=== PATIENT | female | born 1955 ===

== ENCOUNTER 2023-09-17 11:15 | Inpatient (IN) | payer OTHER ==
[~2023-09-17] VITALS: Ht 162.6 cm; Wt 86.2 kg
[2023-09-17 13:01] LABS: HEMATOCRIT 41.5 % (36.0-45.00); MEAN CELL VOLUME 84.2 fL (80.00-100.00); MEAN CORPUSCULAR HEMOGLOBIN 28.5 pg (27.00-32.0); MEAN CORPUSCULAR HGB CONC 33.8 g/dl (32.0-36.0); PLATELET COUNT 312 K/uL (150-450); RED BLOOD COUNT 4.93 M/uL (4.00-6.00); RED CELL DISTRIBUTION WIDTH 14.4 % (11.5-14.5)
[2023-09-17 13:10] LABS: URINE APPEARANCE Clear; URINE BILIRRUBIN Negative (NEGATIVE); URINE BLOOD Negative; URINE COLOR Yellow; URINE GLUCOSE Negative (NEGATIVE); URINE LEUKOCYTE Small; URINE NITRATE Negative; URINE PROTEIN Negative (NEGATIVE); URINE UROBILINOGEN 0.2 E.U./dl
[2023-09-17 13:15] LABS: URINE BACTERIA 149.8 uL (0.0-1933); URINE EPITHELIAL CELLS 8.3 uL (0.0-38.8); URINE RBC 5.3 uL (0.0-20.8); URINE WBC 23.3 uL (0.0-23.2)
[2023-09-17 13:27] LABS: INR 1.02; PARTIAL THROMBOPLASTIN TIME 37.5 SECONDS (22.0-34.0); PROTHROMBIN TIME 10.7 SECONDS (9.0-11.5)
[2023-09-17 13:33] LABS: BILIRUBIN TOTAL 0.76 mg/dL (0.3-1.2); CALCIUM 9.7 mg/dL (8.5-10.1); CREATININE SERUM 0.85 mg/dL (0.55-1.02); GFR 66.71; GLOBULINA 3.9 G/DL (2.4-3.5); POTASSIUM 4.03 mEq/L (3.5-5.1); TOTAL PROTEIN 7.9 gm/dL (6.4-8.2)
[2023-09-17] MEDS ORDERED: LIPITOR20 MG (13:57)
[2023-09-17] MEDS ORDERED: COZAAR25 MG (13:58)
[2023-09-27] MEDS ORDERED: POVIDONE-IODINE 118 ML BOTT TOP ONE ×2 (10:00→11:30)
[2023-09-27] MEDS ORDERED: CEFOXITIN SODIUM 2,000 MG VIAL IV ONE ×2 (10:31→11:30)
[2023-09-27] MEDS ORDERED: THROMBIN,HU/FIBRINOGEN/CALCIUM 10 ML SYRINGE TOP ONE (11:30)
[2023-09-27] MEDS ORDERED: THROMBIN,HU/FIBRINOGEN/CALCIUM 4 ML SYRINGE TOP ONE (11:36)
[2023-09-27] MEDS ORDERED: VISTASEAL DUAL APPICATOR 1 EACH APPL TOP ONE ×2 (11:37→11:45)
[2023-09-27] MEDS ORDERED: ONDANSETRON HCL 2 MG/ML VIAL IV PRN (12:15)
[2023-09-27] MEDS ORDERED: MORPHINE SULFATE 4 MG/ML CARTRIDGE IV PRN (12:15)
[2023-09-27] MEDS ORDERED: RINGERS SOLUTION,LACTATED 1,000 ML IV SCH (12:15)
[2023-09-27 15:01] LABS: CALCIUM 9.2 mg/dL (8.5-10.1); CREATININE SERUM 0.91 mg/dL (0.55-1.02); GFR 61.66; POTASSIUM 4.24 mEq/L (3.5-5.1)
[2023-09-27 15:49] LABS: HEMATOCRIT 41.7 % (36.0-45.00); MEAN CELL VOLUME 84.3 fL (80.00-100.00); MEAN CORPUSCULAR HEMOGLOBIN 28.4 pg (27.00-32.0); MEAN CORPUSCULAR HGB CONC 33.7 g/dl (32.0-36.0); PLATELET COUNT 308 K/uL (150-450); RED BLOOD COUNT 4.94 M/uL (4.00-6.00); RED CELL DISTRIBUTION WIDTH 14.4 % (11.5-14.5)
[2023-09-27] MEDS ORDERED: KETOROLAC TROMETHAMINE 30 MG VIAL IV SCH (17:00)
[2023-09-27] MEDS ORDERED: CEFOXITIN SODIUM 2,000 MG VIAL IV SCH (17:00)
[2023-09-27] MEDS ORDERED: SIMETHICONE 125 MG CAPSULE PO SCH (17:00)
[2023-09-27] MEDS ORDERED: ENALAPRILAT DIHYDRATE 1.25 MG/ML VIAL IV PRN (21:00)
[2023-09-27] MEDS ORDERED: ACETAMINOPHEN 500 MG GEL..CAP PO PRN (21:00)
[2023-09-27] MEDS ORDERED: FAMOTIDINE/PF 20 MG/2 ML VIAL IV SCH (21:00)
[2023-09-27] MEDS ORDERED: DOCUSATE SODIUM 100MG CAP PO SCH (21:00)
[2023-09-28 02:27] LABS: HEMATOCRIT 38.1 % (36.0-45.00); HEMOGLOBIN 12.6 g/dL (12.0-15.00); MEAN CELL VOLUME 83.5 fL (80.00-100.00); MEAN CORPUSCULAR HEMOGLOBIN 27.6 pg (27.00-32.0); PLATELET COUNT 281 K/uL (150-450); RED BLOOD COUNT 4.56 M/uL (4.00-6.00); RED CELL DISTRIBUTION WIDTH 14.2 % (11.5-14.5)
[2023-09-28 02:49] LABS: CALCIUM 8.8 mg/dL (8.5-10.1); CREATININE SERUM 0.86 mg/dL (0.55-1.02); GFR 65.81; POTASSIUM 3.98 mEq/L (3.5-5.1)
[2023-09-28] MEDS ORDERED: LOSARTAN POTASSIUM 25 MG TABLET PO SCH (09:00)
[2023-09-28] MEDS ORDERED: ENOXAPARIN SODIUM 40 MG/0.4 ML SYRINGE SUBCUTANEO SCH (09:00)
[2023-09-28] MEDS ORDERED: ATORVASTATIN CALCIUM 20 MG TABLET PO SCH (17:00)
== END 2023-09-28 12:45 | disposition home or self-care (01) | DRG 741 ==
LOC: O/R 09-27 06:00 → OB/GYN 09-27 06:00 → SURH 09-27 11:15 → OB/GYN 09-27 13:32 → SURH 09-27 19:00 → OB/GYN 09-28 12:45
PROVIDERS: Obstetrics & Gynecology; ADMIT Obstetrics & Gynecology Gynecologic Oncology; ATTEND Obstetrics & Gynecology Gynecologic Oncology
PROC: 0UT74ZZ Resection of Bilateral Fallopian Tubes, Percutaneous Endoscopic Approach (ICD-10-PCS; 2023-09-27)
PROC: 0UT24ZZ Resection of Bilateral Ovaries, Percutaneous Endoscopic Approach (ICD-10-PCS; 2023-09-27)
PROC: 0DNW4ZZ Release Peritoneum, Percutaneous Endoscopic Approach (ICD-10-PCS; 2023-09-27)
PROC: 07BC4ZZ Excision of Pelvis Lymphatic, Percutaneous Endoscopic Approach (ICD-10-PCS; 2023-09-27)
PROC: 0DN84ZZ Release Small Intestine, Percutaneous Endoscopic Approach (ICD-10-PCS; 2023-09-27)
PROC: 0UT94ZZ Resection of Uterus, Percutaneous Endoscopic Approach (ICD-10-PCS; principal; 2023-09-27 19:00)
DX: C54.1 Malignant neoplasm of endometrium (principal); Z20.822 Contact with and (suspected) exposure to COVID-19